=== PATIENT | female | born 1950 | race African-American/Black ===

== ENCOUNTER → 2017-04-14 | Outpatient (CLI) | payer MEDICARE ==
--- NOTE | 2017-04-14 15:35 | RAD ---
DATE: 04/14/2017 EXAM: DIGITAL SCREEN BILAT W/CAD HISTORY: Routine screening COMPARISON: 01/23/2016 This study was interpreted with the benefit of Computerized Aided Detection (CAD). The breast parenchyma shows scattered fibroglandular densities. Breast parenchyma level B. FINDINGS: No new or enlarging breast densities are seen. Post therapeutic changes are again noted on the right. Benign type calcifications are present. No suspicious microcalcifications have developed. IMPRESSION: Stable mammograms without evidence of malignancy. BI-RADS CATEGORY: 2 BENIGN FINDING(S) RECOMMENDED FOLLOW-UP: 12M 12 MONTH FOLLOW-UP PQRS compliance statement: Patient information was entered into a reminder system with a target due date for the next mammogram. Mammography is a sensitive method for finding small breast cancers, but it does not detect them all and is not a substitute for careful clinical examination. A negative mammogram does not negate a clinically suspicious finding and should not result in delay in biopsying a clinically suspicious abnormality. "Our facility is accredited by the [employer] Mammography [employer]."
== END | disposition home or self-care (01) ==
LOC: MAMMO 09:24
PROVIDERS: ATTEND Internal Medicine Hematology & Oncology
DX: Z12.31 Encounter for screening mammogram for malignant neoplasm of breast (principal)
CPT/HCPCS: G0202; 77067

== ENCOUNTER → 2017-08-25 | Outpatient (CLI) | payer MEDICARE ==
[2017-08-25] MEDS: IOHEXOL 300 MG/ML 100ML VIAL. IV (11:21)
== END | disposition home or self-care (01) ==
LOC: KCIC CT 10:46
DX: J43.9 Emphysema, unspecified (principal); M47.899 Other spondylosis, site unspecified; Z85.3 Personal history of malignant neoplasm of breast; Z87.891 Personal history of nicotine dependence
CPT/HCPCS: 71260; Q9967

== ENCOUNTER → 2018-07-16 | Outpatient (CLI) | payer MEDICARE, BC ==
[~2018-07-16] MED LIST: IOHEXOL 300 MG/ML 100ML VIAL. IV ONE
--- NOTE | 2018-07-16 09:30 | KCIC ---
CT CHEST W/CONTRAST Indication: Right upper lobe density seen on previous CT. Breast cancer. Exposure: One or more of the following individualized dose reduction techniques were utilized for this examination: 1. Automated exposure control 2. Adjustment of the mA and/or kV according to patient size 3. Use of iterative reconstruction technique. Comparison: August 25, 2017 Contrast: Intravenous contrast given. Thoracic aorta: Minimal calcification. No aneurysm or dissection. Great vessel origins:Patent Pulmonary arteries:Main central arteries appear patent. Thyroid gland:Visualized aspect is unremarkable. Lymph nodes: There is some density within the right axilla, likely scarring or fibrosis, unchanged since prior study. No significant axillary lymph node enlargement is seen. Small paratracheal lymph nodes are again identified without significant progression in size. Heart: Mild coronary artery calcification Esophagus: Small hiatal hernia. Pleural spaces: No significant effusion Lungs: Linear opacities in the right upper lobe are stable, compatible with scarring or fibrosis most likely. There is some minimal hazy opacity in the left lung base laterally, has progressed since the prior study. No dense consolidation of lung. Trachea and central airways: Patent Spine: Mild degenerative spondylosis. Bones: No destructive process. Upper abdomen: Slices through the upper abdomen are limited due to the technique. No obvious acute findings. External Soft Tissue: No acute findings. Impression: 1. Linear opacities in the right upper lobe are stable, most likely due to scarring or atelectasis. 2. There has been progression of a mild groundglass opacity in the left lung base laterally, most likely of infectious or inflammatory etiology. 3. Stable mediastinal lymph nodes. Electronically signed by: Mingo Jolly MD (07/16/2018 9:26 AM) [email or web address]
--- NOTE | 2018-07-16 12:26 | KCIC ---
Bilateral digital screening mammograms with 3-D tomosynthesis: Reason for examination: Routine screening. History of right breast cancer with lumpectomy in 2009. Comparison is made to previous studies dated back to 12/20/2014. Bilateral mammograms in CC and oblique projections were obtained with 2-D imaging and 3-D tomosynthesis imaging on a Siemens Inspiration unit and reviewed on the workstation. Interpretation was made with the benefit of CAD. The skin and nipples show no abnormalities. No abnormal axillary lymph nodes are seen. The breast parenchyma shows scattered fatty and fibroglandular density. (Breast density: Category B.) There are postop changes in the right breast. There appears to be new 5.4 mm nodular lesion at the 6:00 position posterior centrally in the left breast. Further evaluation with coned compression views and ultrasound is recommended. There are no other new dominant masses, suspicious calcifications or architectural distortion. Benign calcifications are present. Impression: Small 5.4 mm nodular density posterior centrally in the 6:00 C position of the left breast. Recommend further evaluation with coned compression views and ultrasound. BI-RADS Category 0: Incomplete. Needs additional imaging evaluation. "Our facility is accredited by the [employer] Mammography [employer]." This patient's information has been entered into a reminder system for the patient to be notified with the results of her examination and a target date for the next mammogram. Electronically signed by: Tami Garvey MD (07/16/2018 12:22 PM) [id number]
== END | disposition home or self-care (01) ==
LOC: KCIC CT 08:04
PROVIDERS: ATTEND Family Medicine
DX: Z12.31 Encounter for screening mammogram for malignant neoplasm of breast (principal); K44.9 Diaphragmatic hernia without obstruction or gangrene; I70.0 Atherosclerosis of aorta; Z85.3 Personal history of malignant neoplasm of breast
CPT/HCPCS: 71260; 77063; 77067; Q9967

== ENCOUNTER → 2018-07-24 | Outpatient (CLI) | payer MEDICARE, BC ==
--- NOTE | 2018-07-24 12:35 | KCIC ---
EXAM: CT Abdomen with IV contrast CLINICAL HISTORY: Elevated LFTs. History of breast cancer and fatty liver.. COMPARISON: 08/25/2017 TECHNIQUE: Helical CT of the abdomen was performed following the administration of intravenous contrast. Axial, coronal and sagittal reformatted images were generated. PQRS compliance statement - One or more of the following individualized dose reduction techniques were utilized for this study: 1. Automated exposure control 2. Adjustment of the mA and/or kV according to patient size 3. Use of iterative reconstruction technique FINDINGS: Lower chest: Linear opacities in the middle lobe as well as subpleural reticular opacities in the lung bases likely scarring/atelectasis. Abdomen: Diffuse hepatic hypoattenuation may be seen with hepatic steatosis. No focal liver lesion. Gallbladder is normal. No biliary ductal dilatation. Spleen is unremarkable. Adrenal glands are normal. Pancreas is unremarkable. Symmetric nephrograms. Subcentimeter hypodense right upper pole renal lesion is too small to characterize.. No hydronephrosis. Visualized portions of the appendix, small and large bowel are normal. Moderate colonic stool content is seen. No evidence for bowel obstruction. Small fat-containing periumbilical hernia. Bones: Osseous structures are grossly unremarkable. Focal lucent lesion within the posterior left 11th rib is seen, stable to at least 08/25/2017, and given mild associated linearity may be sequelae of healing fracture. IMPRESSION: 1. Diffuse hepatic hypoattenuation may be seen with hepatic steatosis. No discrete liver lesion. 2. Small fat-containing periumbilical hernia Electronically signed by: Delmar Gonzalez MD (07/24/2018 12:31 PM) [facility]
== END | disposition home or self-care (01) ==
LOC: KCIC CT 09:29
PROVIDERS: ATTEND Family Medicine
DX: R94.5 Abnormal results of liver function studies (principal); K42.9 Umbilical hernia without obstruction or gangrene; I10 Essential (primary) hypertension; E11.9 Type 2 diabetes mellitus without complications; Z79.01 Long term (current) use of anticoagulants; Z87.891 Personal history of nicotine dependence; Z86.69 Personal history of other diseases of the nervous system and sense organs; Z85.3 Personal history of malignant neoplasm of breast
CPT/HCPCS: 74160; Q9967

== ENCOUNTER → 2018-08-04 | Outpatient (CLI) | payer MEDICARE, BC ==
--- NOTE | 2018-08-04 12:56 | KCIC ---
Left breast diagnostic digital mammograms: Reason for examination: Nodular density screening mammogram. Comparison is made to mammographic exam dated 07/16/2018. Coned compression views were obtained in CC and oblique projections. A small faint circumscribed nodule appears to persist posterior centrally within the left breast with no associated calcifications evident. Further evaluation with ultrasound will follow. IMPRESSION: Small faint circumscribed nodule appears to persist posterior centrally in the left breast. Ultrasound to follow. BI-RADS Category 0: Incomplete. Needs additional imaging evaluation. Left breast ultrasound: Ultrasound examination of the left breast was performed with attention to the inferior breast and axilla. A focal lesion is not identified in the breast. No abnormal appearing lymph nodes are seen in the axilla. IMPRESSION: No suspicious abnormality seen in the left breast sonographically. Recommend reevaluation with left breast mammograms and ultrasound in 3 months. BI-RADS Category 3: Probably Benign. "Our facility is accredited by the [employer] Mammography [employer]." This patient's information has been entered into a reminder system for the patient to be notified with the results of her examination and a target date for the next mammogram. Electronically signed by: Tami Garvey MD (08/04/2018 12:53 PM) [id number]
== END | disposition home or self-care (01) ==
LOC: KCIC MAMMO 09:03
PROVIDERS: ATTEND Family Medicine
DX: R92.8 Other abnormal and inconclusive findings on diagnostic imaging of breast (principal); Z85.3 Personal history of malignant neoplasm of breast
CPT/HCPCS: 76641; 77065

== ENCOUNTER → 2018-11-03 | Outpatient (CLI) | payer MEDICARE, BC ==
--- NOTE | 2018-11-03 10:17 | KCIC ---
EXAM: Left breast diagnostic mammogram with tomosynthesis; left breast sonogram. HISTORY: 68-year-old female presents for follow-up evaluation of nodular density within the left breast demonstrated on a mammogram dated 08/04/2018. TECHNIQUE: Full-field digital craniocaudal and mediolateral oblique 2D and 3D tomosynthesis images of the left breast are obtained for evaluation. Computer aided detection with [employer] software version 9.3 was applied. Sonographic imaging of the left breast including all 4 quadrants and the retroareolar lesion was performed. COMPARISON: 08/04/2018 and 07/24/2018 BREAST PARENCHYMAL DENSITY: Level B - Scattered fibroglandular densities. FINDINGS: The previously demonstrated small nodular density within the posterior central left breast is slightly less conspicuous on the current exam. There is no new suspicious mammographic finding. Sonographic imaging of the left breast demonstrates no suspicious finding. IMPRESSION: 1. No new suspicious mammographic or sonographic finding within the left breast. The previously demonstrated small nodular density within the posterior central left breast persists; however, this is slightly less conspicuous compared to the prior study. The interval stability and absence of a sonographic correlate favor benignity. 2. BI-RADS Category 3: Probably benign finding(s). Short term follow up with a diagnostic left breast mammogram in 9 month is recommended. This follow up interval corresponds with the previously established bilateral mammography interval and can confirm a year of mammographic stability. If your mammogram demonstrates that you have dense breast tissue, which could hide abnormalities, and if you have other risk factors for breast cancer that have been identified, you might benefit from supplemental screening tests that may be suggested by your ordering physician. Dense breast tissue, in and of itself, is a relatively common condition. This information is not provided to cause undue concern, but rather to raise your awareness and to promote discussion with your physician regarding the presence of other risk factors, in addition to dense breast tissue. A report of your mammography results will be sent to you and your physician. You should contact your physician if you have any questions or concerns regarding this report. Mammography is a sensitive method for finding small breast cancers, but it does not detect them all and is not a substitute for careful clinical examination. A negative mammogram does not negate a clinically suspicious finding and should not result in delay in biopsying a clinically suspicious abnormality. PQRS compliance statement - Patient information was entered into a reminder system with a target due date for the next mammogram. "Our facility is accredited by the [employer] Mammography [employer]." Electronically signed by: Ana Clarke MD (11/03/2018 10:13 AM) [facility]
== END | disposition home or self-care (01) ==
LOC: KCIC MAMMO 08:36
PROVIDERS: ATTEND Family Medicine
DX: R92.8 Other abnormal and inconclusive findings on diagnostic imaging of breast (principal); Z85.3 Personal history of malignant neoplasm of breast
CPT/HCPCS: 76641; 77065; G0279; 77061

== ENCOUNTER → 2019-01-25 | Outpatient (CLI) | payer MEDICARE, BC ==
--- NOTE | 2019-01-25 10:27 | KCIC ---
Examination: CT CHEST WO CONTRAST History: Abnormal CT. Breast cancer. Comparison/Correlation: 07/16/2018 CT chest with contrast, 08/25/2017 CT chest with contrast Findings: Axial images of chest were obtained without contrast. Sagittal and coronal reformatted images were provided. Scarring involving the right axilla corresponding to axilla dissection again seen. Right upper outer breast scarring also noted. Findings are stable compared to the prior CT exam of 07/16/2018. No enlarged thoracic lymph nodes. Right anterior lung field linear scarring is present. No pulmonary nodule or mass. Tracheobronchial tree is unremarkable. Minimal left posterior lateral mid to lower thoracic subpleural atelectasis appears to be present. This is unchanged compared to previous exam of 07/16/2018. Small hiatal hernia. Fatty infiltration of liver noted. Mild osteopenia noted. Impression: No suspicious infiltrate. Linear scarring involving the anterior right lung field is similar to prior exam. Unchanged subpleural left posterior lateral mid thoracic atelectasis. No new process. Small hiatal hernia. Fatty infiltration liver. PQRS Compliance Statement: One or more of the following individualized dose reduction techniques were utilized for this examination: 1. Automated exposure control 2. Adjustment of the mA and/or kV according to patient size 3. Use of iterative reconstruction technique Electronically signed by: Javon Botello MD (01/25/2019 10:24 AM) [facility]
== END | disposition home or self-care (01) ==
LOC: KCIC CT 09:51
PROVIDERS: ATTEND Internal Medicine Pulmonary Disease
DX: K44.9 Diaphragmatic hernia without obstruction or gangrene (principal); K76.0 Fatty (change of) liver, not elsewhere classified; J98.4 Other disorders of lung; J98.11 Atelectasis; M85.88 Other specified disorders of bone density and structure, other site; I10 Essential (primary) hypertension; Z79.01 Long term (current) use of anticoagulants; Z87.891 Personal history of nicotine dependence; Z86.73 Personal history of transient ischemic attack (TIA), and cerebral infarction without residual deficits
CPT/HCPCS: 71250

== ENCOUNTER → 2019-08-04 | Outpatient (CLI) | payer MEDICARE, BC ==
--- NOTE | 2019-08-04 10:15 | KCIC ---
Bilateral diagnostic digital mammograms with 3-D tomosynthesis: Reason for examination: History of right breast cancer with lumpectomy. Follow-up left breast nodule. Comparison is made to previous studies dated 07/16/2018, 08/04/2018 and 11/03/2018. Bilateral mammograms in CC and oblique projections were obtained with 2-D imaging and 3-D tomosynthesis imaging on a Siemens Inspiration unit and reviewed on the workstation. Interpretation was made with the benefit of CAD. The skin and nipples show no abnormalities. No abnormal axillary lymph nodes are seen. The breast parenchyma shows scattered fatty and fibroglandular density. (Breast density: Category B.) There are postop changes in the right breast. There are calcifications in the right breast which are stable. Some of these have asymmetric toward appearance. The small nodular density in the left breast has regressed. There are no new dominant masses, suspicious calcifications or architectural distortion. Impression: Postop changes in the right breast from lumpectomy. No evidence of new or recurrent malignancy. Recommend routine follow-up. BI-RAD Category 2: Benign. "Our facility is accredited by the [employer] Mammography Program." This patient's information has been entered into a reminder system for the patient to be notified with the results of her examination and a target date for the next mammogram. Electronically signed by: Tami Garvey MD (08/04/2019 10:12 AM) [email or web address]
== END | disposition home or self-care (01) ==
LOC: KCIC MAMMO 08:04
PROVIDERS: ATTEND Internal Medicine Hematology & Oncology
DX: R92.1 Mammographic calcification found on diagnostic imaging of breast (principal); Z85.3 Personal history of malignant neoplasm of breast; Z17.0 Estrogen receptor positive status [ER+]
CPT/HCPCS: 77066; G0279; 77062

== ENCOUNTER → 2020-02-14 | Outpatient (CLI) | payer MEDICARE, BC ==
--- NOTE | 2020-02-14 14:40 | KCIC ---
CT chest without contrast HISTORY: Right breast cancer, lung lesions COMPARISON: January 25, 2019 TECHNIQUE: Computed tomographic imaging of the chest without contrast was performed PQRS Compliance Statement: One or more of the following individualized dose reduction techniques were utilized for this examination: 1. Automated exposure control 2. Adjustment of the mA and/or kV according to patient size 3. Use of iterative reconstruction technique FINDINGS: Visualized thyroid gland unremarkable. Thoracic lymphadenopathy stable Trace pericardial effusion stable Small hiatal hernia stable Visualized upper abdominal organs otherwise unremarkable Post surgical changes right breast again noted. Subpleural interstitial lung changes are stable. No new abnormality IMPRESSION: Stable right upper lobe interstitial changes may reflect therapeutic change Small hiatal hernia Posterior therapeutic changes right breast with stellate area stable Electronically signed by: Marko Ibarra MD (02/14/2020 2:37 PM) [email or web address]
== END ==
LOC: KCIC CT 12:19
PROVIDERS: ATTEND Internal Medicine Pulmonary Disease
DX: R59.1 Generalized enlarged lymph nodes (principal); K44.9 Diaphragmatic hernia without obstruction or gangrene; Z87.891 Personal history of nicotine dependence
CPT/HCPCS: 71250

== ENCOUNTER → 2020-10-12 | Outpatient (CLI) | payer MEDICARE, BC ==
--- NOTE | 2020-10-12 13:17 | KCIC ---
Bilateral digital screening mammograms with 3-D tomosynthesis: Reason for examination: Routine screening. History of right breast cancer with lumpectomy in 2009. Comparison is made to previous studies dated back to 12/20/2014. Bilateral mammograms in CC and oblique projections were obtained with 2-D imaging and 3-D tomosynthes is imaging on a Siemens Inspiration unit and reviewed on the workstation. Interpretation was made wit h the benefit of CAD. The skin and nipples show no abnormalities. No abnormal axillary lymph nodes are seen. The breast par enchyma shows scattered fatty and fibroglandular density. (Breast density: Category B.) There appear to be some calcifications anteriorly at the 9:00 position of the right breast which may be secretory calcifications but appear to be progressing. Further evaluation with coned magnification views in CC and lateral projections is recommended. In the left breast at the 6:00 position approximately 9 cm po sterior to the nipple, there is a small 8 mm nodule present. Further evaluation with ultrasound is re commended. There continues to be an intramammary lymph node at the 2:00 C position which is stable. T here are no other dominant masses, suspicious calcifications or architectural distortion. Benign calc ifications are present. Impression: Calcifications at the 9:00 position anteriorly in the right breast. Recommend coned magnification vie ws. 8 mm nodule which appears to be at the 6:00 position of the left breast approximately 9 cm from t he nipple. Recommend further evaluation with ultrasound. BI-RAD Category 0: Incomplete. Needs additional imaging evaluation. "Our facility is accredited by the [employer] Mammography Program." This patient's information has been entered into a reminder system for the patient to be notified wit h the results of her examination and a target date for the next mammogram. Electronically signed by: Tami Garvey MD (10/12/2020 1:15 PM) [email or web address]
== END ==
LOC: KCIC MAMMO 10:50
PROVIDERS: ATTEND Internal Medicine Hematology & Oncology
DX: Z12.31 Encounter for screening mammogram for malignant neoplasm of breast (principal)
CPT/HCPCS: 77063; 77067

== ENCOUNTER → 2020-11-15 | Outpatient (CLI) | payer MEDICARE, BC ==
--- NOTE | 2020-11-15 13:27 | KCIC ---
Right breast diagnostic digital mammograms: Reason for examination: Calcifications on screening mammogram. Comparison is made to mammographic exams dated 10/12/2020 and 08/04/2019. Coned compression magnification views of the right breast were obtained in CC and true lateral projec tions. There continue to be some clustered calcifications in the right breast at the 8:30 position approxima tely 3 cm from the nipple which have a linear and branching distribution. DCIS cannot be excluded. Fu rther evaluation with stereotactic biopsy is recommended. IMPRESSION: Calcifications at the 8:30 position of the right breast approximately 3 cm from the nipple. DCIS mine ot be excluded. Stereotactic biopsy is recommended. BI-RADS Category 4: Suspicious. These findings have been discussed with the patient and the patient's physician, Dr. Ahn, was noti fied about these findings with message left on answering machine on 11/15/2020 at 1324. Left breast ultrasound: Ultrasound examination of the left breast and axilla was performed. At the 6:00 position approximately 8 cm from the nipple, there appears be a small 4.7 mm nodular dens ity with the parallel orientation and circumscribed margins which may represent a small fibroadenoma or fibrocystic lesion. At the 6:00 position 9 cm from the nipple, there also appears be a subtle area of fibrocystic change measuring approximately 4 mm in greatest dimension which has benign appearance . No grossly suspicious-appearing lesions are seen. No abnormal appearing lymph nodes are seen in the left axilla. IMPRESSION: Small benign-appearing nodular densities at the 6:00 position 8 cm and 9 cm from the nipple. No suspi cious lesion seen. Recommend 6 month follow-up with left breast mammograms and ultrasound. BI-RADS Category 3: Probably Benign. "Our facility is accredited by the [employer] Mammography Program." This patient's information has been entered into a reminder system for the patient to be notified wit h the results of her examination and a target date for the next mammogram. Electronically signed by: Tami Garvey MD (11/15/2020 1:24 PM) [email or web address]
== END ==
LOC: KCIC MAMMO 09:52
PROVIDERS: ATTEND Internal Medicine Hematology & Oncology
DX: R92.1 Mammographic calcification found on diagnostic imaging of breast (principal); Z90.11 Acquired absence of right breast and nipple
CPT/HCPCS: 76641; 77065

== ENCOUNTER → 2020-12-19 | Outpatient (CLI) | payer MEDICARE, BC ==
[~2020-12-19] MED LIST changes: -IOHEXOL 300 MG/ML 100ML VIAL. IV ONE; +LIDOCAINE 1% Multi-Dose 20 ML VIAL. INJ ONE; +LIDOCAINE 2%/EPI 1:100,000 20 ML VIAL. INJ ONE
--- NOTE | 2020-12-19 14:55 | RAD ---
EXAM: 1. STEREOTACTICALLY GUIDED VACUUM ASSISTED RIGHT BREAST CORE BIOPSY. 2. POSTCLIP DIGITAL RIGHT MAMMOGRAPHY. 3. SPECIMEN RADIOGRAPH. HISTORY: Right breast microcalcifications. Stereotactic biopsy is requested. FINDINGS: The procedure and its risks and benefits were discussed with the patient. Risks discussed i ncluded, but were not limited to, pain, infection, bleeding and need for repeat biopsy. The patient p rovided verbal and written consent. A timeout procedure was performed. The target calcifications at the right 9:00 position were localized stereotactically. The overlying s kin was sterilely prepped and infiltrated with 1% lidocaine for local anesthesia. The deeper soft tis sues were infiltrated with lidocaine with epinephrine for anesthesia and hemostasis. A 9 gauge vacuum -assisted core biopsy system was advanced to the target under stereotactic guidance. 6 core biopsy sp ecimens were obtained. A specimen radiograph demonstrates the target calcifications within the specim en. A postbiopsy clip was placed and postoperative images were obtained. Instrumentation was withdraw n and pressure held and hemostasis. A sterile dressing was placed. There were no immediate complicati ons. Postclip digital right mammography was obtained in CC and MLO projections and interpreted on a [employer] workstation. The postbiopsy clip corresponds with the target calcifications, which have been part ially removed. There are mild postprocedural changes. IMPRESSION: 1. Successful stereotactically guided vacuum assisted core biopsy of right breast microcalcifications with clip placement. 2. The target calcifications are included on the specimen radiograph. 3. Postclip mammography demonstrates the postbiopsy clip in correspondence with the target lesion. Electronically signed by: Kev Frederick MD (12/19/2020 2:52 PM) [facility]
--- NOTE | 2020-12-20 17:11 | PATHOLOGY ---
[facility] Accession Number: [id number] . 01 Material submitted: . breast - RIGHT BREAST TISSUE. Modifiers: right . 01 Clinical history: . RIGHT BREAST CALCIFICATIONS RIGHT BREAST STEREOTACTIC BIOPSY ABNORMAL MAMMO OBTAINED 1:53PM FORMALIN 1:58PM . 02 Diagnosis: Breast tissue, right breast stereotactic biopsies: - Stromal fibrosis, duct ectasia, and apocrine metaplasia, focal. - Calcifications identified. See comment. (JPM:jose j; 12/20/2020) QMS 12/20/2020 1409 Local . 02 Comment: There are calcifications present, which are predominantly associated with benign fat within the breast needle biopsies. A few microcalcifications are associated with benign breast parenchyma. There is no atypia or evidence of malignancy. (JPM:jose j; 12/20/2020) . 02 Electronically signed: . Xavier Lai MD, Pathologist NPI- [id number] . 01 Gross description: . Received in formalin labeled "Kimmy Ramirez and right breast". Received are multiple white-yellow fibroadipose breast cores ranging from 1.6-2.0 cm in length and 0.2-0.4 cm in diameter. The specimen is entirely submitted in cassettes A1 thru A3. The specimen was collected 12/19/2020 at 1:53 pm and placed into formalin at 1:58 pm. The specimen will be removed from formalin on 12/19/2020 at 11:40 pm. The specimen will be in formalin more than 6 hours and less than 72 hours.(BLJ; 12/19/2020) BLJ/BLJ 12/20/2020 1406 Local . 02 Pathologist provided ICD-10: N60.31, N60.41, N60.81 . 02 CPT . 976559 Specimen Comment: A courtesy copy of this report has been sent to [phone], [phone] Specimen Comment: [id number] Specimen Comment: Report sent to / DR CASAS Performed at: 01 [facility] [address] [id number] MD Bertin Merino MD Phone: [phone] Performed at: 02 [facility] [address] [place], [place] [id number] MD Xavier Lai MD Phone: [phone]
== END | disposition home or self-care (01) ==
LOC: MAMMO 12:53
PROVIDERS: ATTEND Family Medicine
DX: R92.0 Mammographic microcalcification found on diagnostic imaging of breast (principal); N60.31 Fibrosclerosis of right breast; N60.41 Mammary duct ectasia of right breast; N60.81 Other benign mammary dysplasias of right breast; Z79.899 Other long term (current) drug therapy; Z88.8 Allergy status to other drugs, medicaments and biological substances
CPT/HCPCS: 19081; 77065; J3490

== ENCOUNTER → 2021-08-08 | Outpatient (CLI) | payer MEDICARE, BC ==
--- NOTE | 2021-08-08 14:29 | KCIC ---
Bilateral diagnostic digital mammograms with 3-D tomosynthesis: Reason for examination: History of right breast with lumpectomy and benign biopsy from right breast. Follow-up exam. Comparison is made to previous studies dated back to 04/14/2017. Bilateral mammograms in CC and oblique projections were obtained with 2-D imaging and 3-D tomosynthes is imaging on a Siemens Inspiration unit and reviewed on the workstation. Interpretation was made wit h the benefit of CAD. The skin and nipples show no abnormalities. No abnormal axillary lymph nodes are seen. The breast par enchyma shows scattered fatty and fibroglandular density. (Breast density: Category B.) There are pos top changes in the right breast with some benign calcifications seen bilaterally. There are no new do minant masses, suspicious calcifications or architectural distortion. Impression: Postoperative changes in the right breast. No evidence of new or recurrent malignancy. Ultrasound to follow. BI-RAD Category 0: Incomplete. Needs additional imaging evaluation. Left breast ultrasound: Comparison is made to previous study dated 11/03/2018. Ultrasound examination of the left breast and axilla was performed. No discrete cystic or solid nodules are seen. There is some cystic ductal ectasia in the retroareolar position. No abnormal appearing lymph nodes are seen in the left axilla. 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 No other focal abnormality seen in the left breas t. Recommend routine mammographic follow-up. BI-RADS Category 2: Benign. "Our facility is accredited by the [employer] Mammography [employer]." This patient's information has been entered into a reminder system for the patient to be notified wit h the results of her examination and a target date for the next mammogram. Electronically signed by: Tami Garvey MD (08/08/2021 2:27 PM) [id number]
== END ==
LOC: KCIC MAMMO 12:59
PROVIDERS: ATTEND Internal Medicine Hematology & Oncology
DX: N60.42 Mammary duct ectasia of left breast (principal); R93.89 Abnormal findings on diagnostic imaging of other specified body structures; Z92.3 Personal history of irradiation; Z85.3 Personal history of malignant neoplasm of breast; Z98.890 Other specified postprocedural states
CPT/HCPCS: 76641; 77066; G0279; 77062